=== PATIENT | male | born 1980 ===

== ENCOUNTER 2021-11-06 03:00 | Emergency (ER) | payer SELFPAY ==
[2021-11-06] MEDS ORDERED: Acetaminophen 500 MG Tab PO ONE (03:03)
== END 2021-11-06 03:15 ==
LOC: MW.ED 03:00
DX: S00.531A Contusion of lip, initial encounter (principal); S00.81XA Abrasion of other part of head, initial encounter; W18.09XA Striking against other object with subsequent fall, initial encounter
CPT/HCPCS: 99283; A9270